=== PATIENT | female | born 1955 | race Caucasian/White ===

== ENCOUNTER 2017-11-13 06:07 | Inpatient (IN) | payer OTHER ==
[2017-11-06 09:16] LABS: ABSOLUTE EOSINOPHILS 0.1 thou/uL (0.0-0.7); ABSOLUTE LYMPHOCYTES 2.1 thou/uL (0.8-5.3); ABSOLUTE MONOCYTES 0.7 thou/uL (0.0-1.2); ABSOLUTE NEUTROPHILS 7.6 thou/uL (1.6-8.1); BASOPHILS 0.4 %; EOSINOPHILS 0.7 %; HEMATOCRIT 37.4 % (37.0-47.0); HEMOGLOBIN 12.7 gm/dL (12.0-15.0); MCH 34.3 pg (26.0-34.0); MCV 100.8 fL (80.0-100.0); MONOCYTES 6.4 %; MPV 8.8 fl. (7.2-11.1); NUCLEATED RBCS 0 /100WBC; PLATELET COUNT* 267 thou/uL (150-400); POLYS 72.5 %; RBC 3.71 mil/uL (4.20-5.00); WBC 10.5 thou/uL (4.0-11.0)
[2017-11-06 09:33] LABS: ALBUMIN 3.2 g/dL (3.4-5.0); CALCIUM 9.2 mg/dL (8.5-10.1); CREATININE 0.8 mg/dL (0.6-1.3); POTASSIUM 4.2 mmol/L (3.5-5.1); TOTAL BILIRUBIN 0.4 mg/dL (<0.1-1.0)
[2017-11-06 09:38] LABS: APTT 25.8 Seconds (25.0-31.3); PROTIME 10.1 Seconds (9.20-11.50)
[2017-11-06 10:17] LABS: ESR (SEDRATE) 15 mm/hr (0-30)
[~2017-11-13] VITALS: Ht 167.6 cm; Wt 86.2 kg
[~2017-11-13 06:07] MED LIST: ANUSOL RECTAL; APAP500 PO; COVARYX H.S. T1 EACH; GLUCOSAMINE &1 EAC1 PO; HEALTHYLAX17 GM PO; HYDROXYCHLOROQ200 M1; IRON325 PO; MOBIC15 MG PO; NAPROSYN500 MG; NAPROXEN DELAY500 M1 PO; PREMARIN0.45 MG PO; PROGESTERONE200 MG; PROTONIX40 M2 PO; TRAMADOL 50 MG50 MG PO
[2017-11-13] MEDS ORDERED: MIRALAX17 GM PO (07:51)
[2017-11-13 08:16] VITALS: BP 129/76
[2017-11-13 14:14] VITALS: BP 125/65
--- NOTE | 2017-11-13 15:03 | NUR ---
PATIENT ARRIVED ON UNIT AT 1310. ALERT AND ORIENTED X4. ASSESSMENT COMPLETED AND CHARTED. VSS ON 2 LITERS 02. CONTINUOUS PULSE OX IN PLACE. NO COMPLAINTS OF NAUSEA OR SASHA. MINIMAL COMPLAINTS OF PAIN, STARTED ON ORAL PAIN MEDS TO STAY AHEAD OF PAIN. PATIENTS 02 SAT REMAINS AT 99% ON ROOM AIR, WILL LEAVE PATIENT ON ROOM AIR AND MONITOR THAT SHE REMAINS STABLE. FLUIDS STARTED AND INFUSING ORDERED. CPM IN THE ROOM AND READY FOR USE. CALL LIGHT PLACED IN REACH. NURSING WILL CONTINUE TO MONITOR.
[2017-11-13 17:03] VITALS: BP 130/68
--- NOTE | 2017-11-13 17:30 | NUR ---
PATIENT REMAINS ALERT AND ORIENTED X4. VITALS REMAIN STABLE ON ROOM AIR. PAIN HAS BEEN MANAGED WITH ORAL PAIN MEDICATION. FLUIDS CONTINUE INFUSING ORDERED. PATINT IS AMBULATING VERY WELL, WALKED WITH WALKER TO THE BATHROOM AND BACK TO BED. RESTING COMFORTABLY IN BED AT THIS TIME. HOURLY ROUNDS MAINTAINED, CALL LIGHT WITHIN REACH, NURSING WILL CONTINUE TO MONITOR.
[2017-11-13 19:45] VITALS: BP 111/72
[2017-11-14] VITALS: BP 117/62
[2017-11-14 04:00] VITALS: BP 114/70
--- NOTE | 2017-11-14 04:44 | NUR ---
PATIENT REMAINS ALERT AND ORIENTED X4 THROUGHOUT SHIFT. VITAL SIGNS STABLE ON ROOM AIR. CONTINUOUS PULSE OX IN PLACE. IV PATENT IN THE LEFT HAND INFUSING AT 75 ML/HR PER ORERS. ANTIBIOTICS INFUSED PER ORDERS. PAIN MANAGED WITH PO MEDICATION. DENIES NAUSEA. TOLERATING REGULAR DIET. TRANSFERS WITH ONE ASSIST WITH THE WALKER AND GAITBELT TO THE RESTOOM. BILATERAL SCD'S AND THIGH HIGH ALBINO HOSE IN PACE. POLAR PACK IS ALSO BEING USED PER PATIENT REQUEST. CPM HAS BEEN APPLIED PER ORDERS. REPOSITIONING SELF IN BED. HOURLY ROUNDING COMPLETE. NURSING WILL CONTINUE TO MONITOR.
[2017-11-14 04:46] LABS: HEMATOCRIT 30.1 % (37.0-47.0); HEMOGLOBIN 10.2 gm/dL (12.0-15.0)
[2017-11-14 08:00] VITALS: BP 124/70
--- NOTE | 2017-11-14 09:03 | NUR ---
OT NOT INDICATED AT THIS TIME, DEFER TO P.T. PLEASE ORDER FURTHER OT SERVICES IF INDICATED.
--- NOTE | 2017-11-14 09:10 | NUR ---
I have reviewed the documentation by BLAYNE FERRIS OT LIMITED PERMIT from 11/14/17 to 11/14/17 and I concur with it. JEANINE STALEY
[2017-11-14 11:58] VITALS: BP 124/70
[2017-11-14] MEDS ORDERED: ELIQUIS2.5 MG PO (12:11)
[2017-11-14] MEDS ORDERED: OXYCONTIN10 M1 PO (12:12)
--- NOTE | 2017-11-14 15:42 | NUR ---
SPOKE WITH PT. SHE HAS DISCCHARGE ORDERS FROM ORTHO AND HOSPITALIST. THERAPY SAID SHE DID WELL. PT.SAID SHE FEELS READY TO DISCHARGE. CM HAD CALLED IN PRESCRIPTION FOR ELIQU[facility] WRITTEN TO [facility] IN [place]. COPAY IS $75. SHE SAID SHE CAN AFFORD IT. DISCUSSED HOME HEALTH. SHE HAS NEVER HAD HH BEFORE. SHE CHOSE [facility] IF THEY TAKE HER INSURANCE. [facility]. FAXED DISCHARGE ORDERS, FACE SHEET,H&P AND ORTHO DISCHARGE ORDERS TO HER. SHE WILL CHECK INSURANCE. THEY DO GO TO PT.'S ADDRESS IN [place]. DISCUSSED CPM AND ALESHA SCNALON.
--- NOTE | 2017-11-14 17:19 | NUR ---
ASSUMED CARE OF PATIENT AFTER MORNING REPORT AROUND 0720. ALERT AND ORIENTED X4. ASSESSMENT COMPLETED AND CHARTED. VSS ON ROOM AIR. FLUIDS DISCONTINUED THIS AM. ANTIBIOTICS INFUSED ORDERED. PAIN HAS BEEN MANAGED WITH ORAL PAIN MEDICATION. NO COMPLAINTS OF NAUSEA OR SOA. PATIENT USED CPM ORDERED. WORKED VERY WELL WITH THERAPY AND CLEARED FOR DISCHARGE WITH HOME HEALTH FOR PHYSICAL THERAPY. PATIENT DISCHARGED AT 1712, ALL PERSONAL BELONGINGS, PRESCRIPTIONS AND DISCHARGE INFORMATION SENT WITH PATIENT UPON DISCHARGE.
--- NOTE | 2017-12-01 13:54 | OP ---
[address] [address] OPERATIVE REPORT Name: YOHANA BELTRÁN Room: [address] IN .R.#: [id number] Admission: 11/13/17 Attend Phys: Krystle Hsieh Discharge: 11/14/17 Date of : 59 Report #: [id number] THIS REPORT FOR: //name// CC: Carson Ferrara DATE OF SERVICE: 11/13/2017 FAMILY PHYSICIAN: Dr. Hernandez. PREOPERATIVE DIAGNOSIS: Degenerative joint disease, right knee. POSTOPERATIVE DIAGNOSIS: Degenerative joint disease, right knee. OPERATION PERFORMED: Right Total Knee Arthroplasty SURGEON: Ahmet Orta DO. CHIEF COMMUNICATIONS OFFICER: Saad Menon DO. SECOND LEAD PHARMACY TECHNICIAN: George Fitzgerald DO. ANESTHESIA: General with presurgical block, right leg, Anesthesia Department. GROSS PATHOLOGY: There was evidence of advanced degenerative joint disease to the right knee, which is consistent with x-rays from my office. IMPLANTS UTILIZED: Russell femur narrow size 8 right, tibia size D, 29-mm patella, size 12 tibial articular surface (MC). DESCRIPTION OF PROCEDURE: The patient was brought to the operating room where general anesthetic was administered. Preoperative antibiotics were given. A Hibiclens scrub and a ChloraPrep, prep were done to the right leg. The patient was draped in a sterile manner. An incision was made in the superior pole of patella to the tibial tuberosity, was carried down through the skin and subcuticular material by sharp dissection. A medial arthrotomy was performed. Osteophytes were trimmed accordingly. A starting hole was made in the distal femur. The intramedullary guide with a distal cutting block was placed on the distal femur. It was held in place with pins. The patient did have a flexion contracture and a +2 cut was utilized. The distal femur was cut, a good cut is noted. Utilizing the extramedullary guide, it is placed on the tibia, adjusted accordingly, held in place with pins, the proximal tibia was cut. 10 mm spacer fit well, which confirmed implants would fit. The jigs were removed. Attention was turned to the femur where the femur sizer is utilized with the 8 being the best fit. The block is placed into position, held in place with pins. The [address] [address] OPERATIVE REPORT Name: YOHANA BELTRÁN Room: [address] IN [facility].#: [id number] Admission: 11/13/17 Attend Phys: Krystle Hsieh Discharge: 11/14/17 Date of : 59 Report #: [id number] captured cuts were then made. Attention was turned back to the tibia where the base plate is placed in position, adjusted accordingly, held in place with pins. The femoral component was placed into position. The articular surface was placed in the tibial tray. The patella is measured and cut utilizing the resurfacing device. The patella was quite absent in substance on the medial aspect, but the 29-mm trial could fit the patella. The patella holes were drilled. Trial patella placed in position. The knee was taken through range of motion and noted to be stable. Components fit well. There is some overhang with a standard femur, so the narrow was going to be utilized on the final prosthesis. The tourniquet is inflated to 310 mmHg. The femoral component was removed ____ patella and the articular surface. The hole was drilled into the proximal tibia and the proximal tibia was broached. Utilizing bone pieces, the original intramedullary hole was filled with a bone plug. The trial components were removed. The knee was pulsatile lavaged. Cement is mixed. The components are cemented into position. Knee was held in extension with compression as well as patellar clamp was utilized. Excess cement is removed as needed. After the cement had completely hardened, any further excess cement was removed. The 12-mm articular surface was the best fit. The final articular surface was impacted into the tibia with the snap click noted confirming its seating. TXA is placed in the knee. The tourniquet deflated to 0. Betadine solution was allowed to sit in the knee and then was irrigated. The medial arthrotomy site closed with a 5 TiCron suture, the remainder with a #1 Vicryl, subq #2 Vicryl. A Stratafix was utilized subcutaneous and the skin is cemented. Estimated blood loss approximately 300 mL. The wound was thoroughly irrigated throughout the entire procedure. Needle and sponge count reported as correct and hemostasis maintained. After the sterile dressing was applied, the patient was transferred to the recovery room in good condition. <ELECTRONICALLY SIGNED> By: Ahmet Orta DO 12/01/17 1354 [id number] Orta DO /nt
== END 2017-11-14 17:12 | disposition home health service (06) | DRG 470 ==
LOC: M.PRE 06:07 → M.TBA 07:03 → M.PRE 07:03 → M.ORTHSURG 07:03 → M.PRE 12:37 → M.ORTHSURG 13:59 → M.PRE 14:03 → M.ORTHSURG 11-14 17:12
PROVIDERS: Orthopaedic Surgery; ADMIT Internal Medicine
PROC: 0SRC0J9 Replacement of Right Knee Joint with Synthetic Substitute, Cemented, Open Approach (ICD-10-PCS; principal; 2017-11-13)
DX: M17.11 Unilateral primary osteoarthritis, right knee (principal); K21.9 Gastro-esophageal reflux disease without esophagitis; K57.90 Diverticulosis of intestine, part unspecified, without perforation or abscess without bleeding; M54.30 Sciatica, unspecified side; Z88.7 Allergy status to serum and vaccine; Z90.710 Acquired absence of both cervix and uterus; Z87.891 Personal history of nicotine dependence; Z79.2 Long term (current) use of antibiotics